=== PATIENT | female | born 1960 | race Caucasian/White ===

== ENCOUNTER → 2018-11-21 | Outpatient (CLI) | payer OTHER ==
--- NOTE | 2018-11-21 16:32 | REP ---
Urinary tract sonogram: History: Frequent UTIs. Comparison: No comparison study. Findings: Scanning at the level of the urinary bladder shows no abnormality. Pre void bladder volume is calculated at 105 ml. Complete emptying is seen postvoid. Renal cortical echogenicity pattern is normal bilaterally and contours are smooth. There is no evidence of hydronephrosis, cyst, mass, or calculus in either kidney. The right kidney measures 12.2 x 6.3 x 5.1 cm. Left renal dimensions are 12.0 x 5.2 x 6.3 cm. Impression: Normal urinary tract sonography. Electronically Signed by Graeme Lim MD 11/21/2018 04:24 P
== END ==
LOC: M RAD 11:18
PROVIDERS: ATTEND Nurse Practitioner Family
DX: N39.0 Urinary tract infection, site not specified (principal)

== ENCOUNTER → 2019-03-10 | Outpatient (CLI) | payer OTHER ==
[~2019-03-10] MED LIST: ACAR25TA2 PO; BASA100I SC; CALTTAB6 PO; JANU100T PO; LISI10TA4 PO; METF10004 PO; METH-855 PO; OXYB10TA2 PO; PRED5TA PO; SIMV20TA2 PO; STEG15TA PO; STIO1AER INH; TOPI50TA9 PO; VENTAER INH
[2019-03-10 13:41] LABS: HEMATOCRIT 42.6 % (36.0-47.0); HEMOGLOBIN 13.2 g/dl (12.0-15.5); MEAN CORPUSCULAR HEMOGLOBIN 28.3 pg (27.0-33.0); MEAN CORPUSCULAR VOLUME 91.2 fl (80.0-96.0); PLATELET COUNT, AUTOMATED 252 10^3/uL (150-450); RED BLOOD COUNT 4.67 10^6/uL (4.00-5.40)
[2019-03-10 14:02] LABS: ALBUMIN 3.4 GM/DL (3.2-5.2); ALT/SGPT 43 U/L (12-78); BILIRUBIN,TOTAL 0.4 MG/DL (0.2-1.0); BLOOD UREA NITROGEN 13 MG/DL (7-18); CALCIUM LEVEL 9.4 MG/DL (8.5-10.1); CARBON DIOXIDE LEVEL 24 MEQ/L (21-32); CHLORIDE LEVEL 105 MEQ/L (98-107); CREATININE FOR GFR 0.66 MG/DL (0.55-1.30); GLOMERULAR FILTRATION RATE > 60.0 (>51); GLUCOSE, FASTING 153 MG/DL (70-100); POTASSIUM SERUM 4.3 MEQ/L (3.5-5.1); SODIUM LEVEL 138 MEQ/L (136-145); TOTAL PROTEIN 6.4 GM/DL (6.4-8.2)
[2019-03-10 15:26] LABS: HEMOGLOBIN A1c 7.7 %
== END ==
LOC: M SMT 09:49
PROVIDERS: ATTEND Specialist
DX: Z28.21 Immunization not carried out because of patient refusal (principal)

== ENCOUNTER → 2019-03-10 | Outpatient (REF) | payer OTHER ==
[2019-03-10 13:33] LABS: BACTERIA, URINE AUTO 1+ (NEGATIVE); MUCUS, URINE SMALL (NEGATIVE); RBC, URINE AUTO 26 /HPF (0-3); SQUAMOUS EPITHELIAL CELL UR AU 7 /HPF (0-6); WBC, URINE AUTO 97 /HPF (0-3)
== END ==
LOC: M SMT 13:04
PROVIDERS: ATTEND Specialist
DX: N39.0 Urinary tract infection, site not specified (principal); Z28.21 Immunization not carried out because of patient refusal

== ENCOUNTER 2019-05-29 06:50 | Day surgery (SDC) | payer OTHER ==
[~2019-05-29] VITALS: Ht 162.6 cm; Wt 132.9 kg
[~2019-05-29 06:50] MED LIST changes: +LIDOCAINE 2% INJ 100 MG/5 ML SDV (FOR ANES.) As Ordered ONE; +LR 1,000 ML IV ONE; +MIDAZOLAM INJ 2 MG/2 ML VIAL (J2250) As Ordered ONE; -OXYB10TA2 PO; +OXYB10TA23 PO; -SIMV20TA2 PO; +SIMV20TA22 PO; +ceFAZolin SOD 2 GM in IV 1 EA IV ONE; +propofoL 200 MG/20 ML VIAL As Ordered ONE
[2019-05-29] MEDS ORDERED: propofoL 500 MG/50 ML VIAL As Ordered ONE (07:50)
[2019-05-29] MEDS ORDERED: propofoL 200 MG/20 ML VIAL As Ordered ONE ×2 (07:53→08:49)
[2019-05-29] MEDS ORDERED: AMOX500T2 PO (08:18)
[2019-05-29] MEDS ORDERED: LIDOCAINE 2% 5ML JELLY UROJET As Ordered ONE (08:19)
[2019-05-29] MEDS ORDERED: BOTULINUM INJ 100 UNITS (J0585) As Ordered ONE (08:19)
[2019-05-29] MEDS ORDERED: LIDOCAINE 1% MDV INJ 50 ML VIAL As Ordered ONE (08:19)
[2019-05-29] MEDS ORDERED: ESMOLOL INJ 100MG/10ML VIAL As Ordered ONE (09:03)
[2019-05-29] MEDS ORDERED: BELLADONNA 16.2mg/OPIUM 60mg 1 EA SUPP As Ordered ONE (09:08)
[2019-05-29] MEDS ORDERED: ONDANSETRON 4MG/2ML VIAL (J2405) As Ordered ONE (09:17)
[2019-05-29 10:13] VITALS: BP 167/70
--- NOTE | 2019-05-29 19:25 | RO ---
DATE OF PROCEDURE: 05/29/2019 PREOPERATIVE DIAGNOSIS: Significant urinary urgency, frequency, and urge incontinence despite medical management, and chronic cystitis. POSTOPERATIVE DIAGNOSIS: Significant urinary urgency, frequency, and urge incontinence despite medical management, and chronic cystitis. OPERATIVE PROCEDURE: Cystoscopy, hydrodistention, bladder biopsies, and intravesical Botox with 100 units SURGEON: Dr. Jyoti Vance ANESTHESIA: IV sedation. MEDICATIONS: Ancef 2 grams preoperatively. FINDINGS Significant bloody efflux with a total bladder capacity of only approximately 350 mL under anesthesia with some minimal glomerular lesions only, but findings of hemorrhagic cystitis. INDICATIONS FOR PROCEDURE The patient is a 58-year-old female with a longstanding history of recurrent urinary tract infections and urinary urgency, frequency every hour, and urge incontinence despite medical management with oxybutynin ER 10 mg twice daily and methenamine. On cystoscopy she had areas of chronic cystitis and it was decided to bring her to the operating room for further surgical management. Informed consent was obtained in both verbal and written form. DESCRIPTION OF PROCEDURE The patient was brought into the operating room. Sequential compression devices were in place and preoperative antibiotics were given. IV sedation was done and the patient was placed in the lithotomy position. Careful attention was paid that her pressure points were well padded and protected. She was then prepped and draped in the usual fashion. A #21-[place] cystoscope was then inserted. The urethra was noted to be open without any evidence of lesions or strictures. Upon entering the bladder, both ureteral orifices were seen. There was significant pseudomembranous trigonitis and findings of chronic cystitis with very friable bladder. There was no significant erythematous patches, lesions, stones or other significant abnormalities. At this point the bladder was distended using normal saline under gravity drainage. Her total bladder capacity was only about 350 mL and there was obvious urge incontinence around the cystoscope. At this point, the bladder biopsies were done and fulguration was done using sterile water. The water source was then placed back to normal saline and 100 units of Botox was placed throughout the bladder with 10 injections of 1 mL each. These areas were again fulgurated at the end. The patient tolerated the procedure well and was returned to the recovery room in stable condition after a red rubber catheter was placed with 10 mL of 1% lidocaine and lidocaine jelly.
== END 2019-05-29 10:15 | disposition home or self-care (01) ==
LOC: M SDC 06:50
PROVIDERS: ATTEND Specialist
DX: N30.10 Interstitial cystitis (chronic) without hematuria (principal); N39.41 Urge incontinence; I10 Essential (primary) hypertension; E78.5 Hyperlipidemia, unspecified; E10.9 Type 1 diabetes mellitus without complications; J44.9 Chronic obstructive pulmonary disease, unspecified; Z79.4 Long term (current) use of insulin; Z79.84 Long term (current) use of oral hypoglycemic drugs; Z87.891 Personal history of nicotine dependence; Z79.899 Other long term (current) drug therapy; Z88.1 Allergy status to other antibiotic agents
CPT/HCPCS: 52224; 52287; 88305; J0585; J0690; J2250; J2405

== ENCOUNTER → 2019-07-01 | Outpatient (REF) | payer OTHER ==
[~2019-07-01] MED LIST changes: +AMOX500T2 PO; -LIDOCAINE 2% INJ 100 MG/5 ML SDV (FOR ANES.) As Ordered ONE; -LR 1,000 ML IV ONE; -MIDAZOLAM INJ 2 MG/2 ML VIAL (J2250) As Ordered ONE; -ceFAZolin SOD 2 GM in IV 1 EA IV ONE; -propofoL 200 MG/20 ML VIAL As Ordered ONE
[2019-07-01 13:31] LABS: BACTERIA, URINE AUTO 1+ (NEGATIVE); RBC, URINE AUTO TNTC /HPF (0-3); SQUAMOUS EPITHELIAL CELL UR AU 7 /HPF (0-6); WBC, URINE AUTO TNTC /HPF (0-3)
== END ==
LOC: M SMT 12:54
PROVIDERS: ATTEND Specialist
DX: N39.0 Urinary tract infection, site not specified (principal)

== ENCOUNTER → 2019-09-28 | Outpatient (REF) | payer OTHER ==
[2019-09-28 19:21] LABS: APPEARANCE, URINE CLOUDY (CLEAR); BACTERIA, URINE AUTO 1+ (NEGATIVE); BILIRUBIN, URINE AUTO NEGATIVE (NEGATIVE); BLOOD, URINE BLOOD 2+ (NEGATIVE); COLOR, URINE YELLOW (YELLOW); GLUCOSE, URINE (UA) AUTO 3+ mg/dL (NEGATIVE); KETONE, URINE AUTO NEGATIVE (NEGATIVE); LEUKOCYTE ESTERASE, URINE AUTO 3+ (NEGATIVE); MUCUS, URINE SMALL (NEGATIVE); NITRITE, URINE AUTO POSITIVE (NEGATIVE); PROTEIN, URINE AUTO NEGATIVE (NEGATIVE); RBC, URINE AUTO 48 /HPF (0-3); SPECIFIC GRAVITY URINE AUTO 1.027 (1.002-1.035); SQUAMOUS EPITHELIAL CELL UR AU 2 /HPF (0-6); UROBILINOGEN, URINE AUTO 0.2 mg/dL (0.0-2.0); WBC, URINE AUTO TNTC /HPF (0-3)
== END ==
LOC: M SMT 16:30
PROVIDERS: ATTEND Nurse Practitioner Family
DX: N39.0 Urinary tract infection, site not specified (principal)

== ENCOUNTER → 2020-02-18 | Outpatient (REF) | payer OTHER ==
[2020-02-18 13:47] LABS: APPEARANCE, URINE CLOUDY (CLEAR); BACTERIA, URINE AUTO 1+ (NEGATIVE); BILIRUBIN, URINE AUTO NEGATIVE (NEGATIVE); BLOOD, URINE BLOOD 2+ (NEGATIVE); COLOR, URINE YELLOW (YELLOW); GLUCOSE, URINE (UA) AUTO 3+ mg/dL (NEGATIVE); KETONE, URINE AUTO TRACE mg/dL (NEGATIVE); LEUKOCYTE ESTERASE, URINE AUTO 3+ (NEGATIVE); NITRITE, URINE AUTO NEGATIVE (NEGATIVE); PROTEIN, URINE AUTO 1+ mg/dL (NEGATIVE); RBC, URINE AUTO 32 /HPF (0-3); SPECIFIC GRAVITY URINE AUTO 1.023 (1.002-1.035); SQUAMOUS EPITHELIAL CELL UR AU 1 /HPF (0-6); UROBILINOGEN, URINE AUTO 0.2 mg/dL (0.0-2.0); WBC, URINE AUTO TNTC /HPF (0-3)
[2020-02-18 13:48] LABS: BASO # 0.1 10^3/uL (0.0-0.2); BASO % 0.4 % (0.0-1.0); EOS # 0.1 10^3/uL (0.0-0.5); EOS % 1.1 % (0.0-3.0); HEMATOCRIT 45.2 % (36.0-47.0); HEMOGLOBIN 14.3 g/dl (12.0-15.5); LYMPH # 1.9 10^3/uL (1.5-5.0); LYMPH % 16.5 % (24.0-44.0); MEAN CORPUSCULAR HEMOGLOBIN 27.5 pg (27.0-33.0); MEAN CORPUSCULAR HGB CONC 31.6 g/dl (32.0-36.5); MEAN CORPUSCULAR VOLUME 86.9 fl (80.0-96.0); MONO # 0.9 10^3/uL (0.0-0.8); MONO % 7.8 % (0.0-5.0); NEUTROPHILS # 8.4 10^3/uL (1.5-8.5); NEUTROPHILS % 73.8 % (36.0-66.0); PLATELET COUNT, AUTOMATED 276 10^3/uL (150-450); WHITE BLOOD COUNT 11.4 10^3/uL (4.0-10.0)
[2020-02-18 14:14] LABS: ERYTHROCYTE SEDIMENTATION RATE 24 mm/hr (0-30)
[2020-02-18 14:22] LABS: ALBUMIN 3.4 GM/DL (3.2-5.2); ALT/SGPT 42 U/L (12-78); BILIRUBIN,TOTAL 0.5 MG/DL (0.2-1.0); BLOOD UREA NITROGEN 17 MG/DL (7-18); CALCIUM LEVEL 9.7 MG/DL (8.5-10.1); CARBON DIOXIDE LEVEL 26 MEQ/L (21-32); CHLORIDE LEVEL 101 MEQ/L (98-107); CREATININE FOR GFR 0.55 MG/DL (0.55-1.30); GLOMERULAR FILTRATION RATE > 60.0 (>51); GLUCOSE, FASTING 183 MG/DL (70-100); POTASSIUM SERUM 4.6 MEQ/L (3.5-5.1); SODIUM LEVEL 136 MEQ/L (136-145); TOTAL PROTEIN 6.8 GM/DL (6.4-8.2)
[2020-02-18 15:04] LABS: HEPATITIS C VIRUS ABY INDEX 0.1 INDEX (<0.8); HIV 1&2 SCREEN CENTAUR NEGATIVE (NEGATIVE)
== END ==
LOC: M SFHCPLAZ 12:04
PROVIDERS: ATTEND Internal Medicine Infectious Disease
DX: N39.0 Urinary tract infection, site not specified (principal); L81.8 Other specified disorders of pigmentation

== ENCOUNTER → 2020-08-15 | Outpatient (CLI) | payer OTHER ==
[~2020-08-15] MED LIST changes: +LIDOCAINE 1% MDV 20ML VIAL As Ordered ONE; +LISI10TA22 PO; -LISI10TA4 PO
[2020-08-15 08:44] LABS: PLATELET COUNT, AUTOMATED 330 10^3/uL (150-450)
[2020-08-15 08:55] LABS: INR 1.09; PROTHROMBIN TIME 14.3 SECONDS (12.5-14.3)
[2020-08-15 08:56] LABS: PARTIAL THROMBOPLASTIN TIME 28.2 SECONDS (24.2-38.5)
--- NOTE | 2020-08-15 11:01 | REP ---
INDICATION: BLEEDING AFTER KIDNEY BIOPSY. COMPARISON: CT-guided biopsy images today, prior CT 06/09/2020. TECHNIQUE: CT abdomen performed the axial plane with sagittal and coronal reconstruction images. FINDINGS: At the site of the of biopsy of the upper pole of the right kidney is small amount of post biopsy hemorrhage and air is seen along the posteromedial margin of the kidney. This is stable compared to the prior images just over 1 hour earlier. There is stable bilateral hydroureteronephrosis. The liver, spleen, adrenals and pancreas appear unchanged. IMPRESSION: Small amount of post biopsy hemorrhage along the upper pole of the right kidney remains stable compared to the immediate post biopsy images. <Electronically signed by Heron Warren > 08/15/20 [id number]
[2020-08-15 11:54] VITALS: BP 135/64
--- NOTE | 2020-08-15 19:07 | REP ---
INDICATION: RT KIDNEY MASS. COMPARISON: None. TECHNIQUE: The procedure was performed under the direct supervision of Dr. Warren. The patient has a history of a 2 x 2 cm lesion in the right kidney at the midpole seen on a previous CT scan from [facility] dated 06/09/2020. The risks and benefits of the procedure were explained to the patient and informed consent was obtained. The right midpole kidney lesion was localized using CT guidance. The skin was prepped and draped in a sterile fashion. 1% lidocaine was used as local anesthetic using CT guidance a 19/20 gauge coaxial needle biopsy system was inserted and advanced into the lesion. Five core biopsy samples were obtained and sent to the lab for analysis. Post biopsy scan shows a small hematoma. Images obtained 5 minutes later show no change in the size of the hematoma. A CT scan of the abdomen was performed 1 hour later and again show no change in the size of the small hematoma. The patient tolerated the procedure well and there were no immediate complications. After the appropriate amount to monitor convalescence the patient was discharged from the department. FINDINGS: None IMPRESSION: Ultrasound-guided right kidney biopsy. <Electronically signed by Kaz Fischer > 08/15/20 [id number] <Electronically signed by Heron Warren > 08/15/20 [id number]
== END ==
LOC: M IRPRO 08:10
PROVIDERS: ATTEND Urology
DX: C64.1 Malignant neoplasm of right kidney, except renal pelvis (principal); N13.30 Unspecified hydronephrosis; N13.4 Hydroureter; E11.59 Type 2 diabetes mellitus with other circulatory complications; I73.9 Peripheral vascular disease, unspecified; J44.9 Chronic obstructive pulmonary disease, unspecified

== ENCOUNTER → 2020-08-30 | Outpatient (POV) | payer OTHER ==
[~2020-08-30] VITALS: Ht 162.6 cm; Wt 115.5 kg
[~2020-08-30] MED LIST changes: -LIDOCAINE 1% MDV 20ML VIAL As Ordered ONE
[2020-08-30 13:04] VITALS: BP 168/76
--- NOTE | 2020-09-02 09:02 | IRCOV ---
[facility] IR Consult Office Visit IR Consult Office Visit DATE: Aug 30, 2020 REASON FOR CONSULTATION/CHIEF COMPLAINT: Right renal cancer. HISTORY OF PRESENT ILLNESS: 59-year-old female with diabetes, hypertension, hyperlipidemia and COPD, on home oxygen 2.5 L at night. Patient complains of years of frequency, dysuria or urinary continence and UTIs. She reports prior hematuria. She states during the workup for one of these episodes, she had imaging done which demonstrated a right renal tumor. She denies pain, fevers, chills or change in weight. She denies exposure to any toxins. She denies prior history of cancers. She is a former smoker; she quit 7 years ago. She denies any prior kidney surgery other than this mass which was biopsied on 08/15/2020 and is biopsy proven clear cell carcinoma. She is referred from urology for possible tumor ablation. ALLERGIES: Please see below. HOME MEDICATIONS: Please see below. PAST MEDICAL HISTORY: Urinary incontinence Arthritis Peripheral vascular disease COPD Type 2 diabetes Uterovaginal prolapse Gross hematuria Lateral cystocele Recurrent UTIs/cystitis PAST SURGICAL HISTORY: Open reduction and internal fixation of left lower extremity fractures Cystoscopy 02/04/2019 FAMILY HISTORY: Noncontributory. SOCIAL HISTORY: Former smoker. Quit 7 years. Started smoking at age 25; 3 packs per day. Denies alcohol or drugs. REVIEW OF SYSTEMS: Otherwise negative. PHYSICAL EXAMINATION: VITAL SIGNS: Please see below. GENERAL APPEARANCE: Appears well. Comfortable at rest. HEENT: No scleral icterus. RESPIRATORY: Normal breathing at rest. CARDIOVASCULAR: Normal rate. ABDOMEN: Soft nontender. EXTREMITIES: Minimal edema. NEUROLOGICAL: Alert and oriented. PSYCHIATRIC: Appropriate to circumstance. LABORATORY DATA: None recent. Imaging: I personally reviewed the CT abdomen without and with contrast pe rformed June 09, 2020. There is a an enhancing partially exophytic right renal tumor measuring 1.9 x 2.3 axial x 2.3 cm craniocaudal. There is also an area of abnormal enhancement in the left kidney which has a masklike appearance (image 43 series 3). ASSESSMENT/PLAN: 59-year-old female with biopsy-proven, partially exophytic, right renal tumor but also an area of suspicion in the left kidney. The right renal tumor is amenable to cryoablation. We discussed the risks and benefits of the procedure and patient would like to proceed. We'll schedule the patient for right renal tumor cryoablation. Patient will require ongoing observation and follow-up of this left renal lesion and/or biopsy if appropriate. I spent 45 minutes reviewing patient's records, imaging and in consultation with the patient. Thank you for this referral. Cc Dr. Sena Allergies Coded Allergies: ciprofloxacin (Verified Allergy, Unknown, hives, 03/12/19) Uncoded Allergies: FLU SHOT (Allergy, Intermediate, HIVES, 08/11/20) pt. states arm swelling, hives, itching Home Medications Scheduled Acarbose (Acarbose), 1 TAB PO TID, (Reported) Curly/D3/Mag11/Zinc/Caregivers Non Medical/Conner/Bor (Caltrate 600+D Plus Tablet), 2 TAB PO BID, (Reported) Ertugliflozin Pidolate (Steglatro), 1 TAB PO DAILY, (Reported) Lisinopril (Lisinopril), 1 TAB PO DAILY, (Reported) Methenamine Hippurate (Methenamine Hippurate), 1 TAB PO BID, (Reported) Simvastatin (Simvastatin), 20 MG PO DAILY, (Reported) Tiotropium Br/Olodaterol HCl (Stiolto Respimat Inhal [place]), 2 PUFFS INH DAILY, (Reported) Topiramate (Topiramate), 50 MG PO BID, (Reported) Scheduled PRN Albuterol Sulfate (Ventolin Hfa), 2 PUFF INH Q4-6HP PRN for wheezing, (Reported) Insulin Glargine,Hum.rec.anlog (Basaglar Kwikpen U-100), 40 UNITS SC QHSP PRN for elevated sugar above 140, (Reported) VS, I&O, 24H, Fishbone Vital Signs/I&O Vital Signs Date Time Temp Pulse Resp B/P (MAP) Pulse Ox O2 Delivery O2 Flow Rate FiO2 08/30/20 13:04 97.5 82 24 168/76 (106) 94 Room Air SONIA ODOM MD Sep 02, 2020 09:02
== END ==
LOC: M IRPOV 12:32
PROVIDERS: ATTEND Radiology Diagnostic Radiology
DX: C64.1 Malignant neoplasm of right kidney, except renal pelvis (principal); R93.422 Abnormal radiologic findings on diagnostic imaging of left kidney; E11.9 Type 2 diabetes mellitus without complications; E78.5 Hyperlipidemia, unspecified; I10 Essential (primary) hypertension; I73.9 Peripheral vascular disease, unspecified; J44.9 Chronic obstructive pulmonary disease, unspecified; M12.9 Arthropathy, unspecified; Z87.440 Personal history of urinary (tract) infections

== ENCOUNTER → 2020-09-08 | Outpatient (CLI) | payer OTHER ==
[~2020-09-08] MED LIST changes: +CALC500T31 PO; +D-101000 PO; +DARI7.5T11 PO; +ISOVUE-370 76% 100ML VIAL As Ordered ONE; +LIDOCAINE 1% MDV 20ML VIAL As Ordered ONE; +MIDAZOLAM INJ 2MG/2ML VIAL (J2250 PER 1MG) As Ordered ONE; +OSTETAB2 PO; +PENT10CA PO; +PROMETHAZINE INJ 25 MG/ML VIAL (J2550) As Ordered ONE; +diphenhydrAMINE 50MG/ML VIAL (J1200) As Ordered ONE; +fentaNYL 100 MCG/2 ML INJECTION (J3010) As Ordered ONE
--- NOTE | 2020-09-08 08:25 | IRHP ---
[facility] IR Pre-Procedure H & P General Date of Service: Sep 08, 2020 Procedure: Same Day Surgery Interval History and Physical I have seen the patient and reviewed last H & P performed within 30 days. There is no significant interval change. History of Present Illness Chief Complaint The patient is a 59-year-old female admitted with a reason for visit of Renal Cancer. PRE-PROCEDURE DIAGNOSIS: Right renal cancer HEART: Normal rate. LUNGS: Normal breathing at rest. ASA Classification ASA Classification: II-Mild systemic disease, III-Severe systemic dis. Mallampati Score: II NPO: Yes Problems with prior sedation: No Obstructive Sleep Apnea: No Plan moderate sedation Allergies Coded Allergies: ciprofloxacin (Verified Allergy, Unknown, hives, 03/12/19) Uncoded Allergies: FLU SHOT (Allergy, Intermediate, HIVES, 08/11/20) pt. states arm swelling, hives, itching Home Medications Scheduled Acarbose (Acarbose), 50 MG PO TID, (Reported) Curly/D3/Mag11/Zinc/Heavy Equipment Operating Engineer/Conner/Bor (Caltrate 600+D Plus Tablet), 2 TAB PO BID, (Reported) Calcium Carbonate (Oyster Shell Calcium), 1 TAB PO BID, (Reported) Cholecalciferol (Vitamin D3) (Vitamin D3), 1 TAB PO DAILY, (Reported) Darifenacin Hydrobromide (Darifenacin ER), 15 MG PO DAILY, (Reported) Ertugliflozin Pidolate (Steglatro), 1 TAB PO DAILY, (Reported) Glucosam/Shyam-Msm1/C/Conner/Bosw (Osteo Bi-Flex Caplet), 1 TAB PO BID, (Reported) Lisinopril (Lisinopril), 20 MG PO DAILY, (Reported) Methenamine Hippurate (Methenamine Hippurate), 1 TAB PO BID, (Reported) Pentosan Polysulfate Sodium (Elmiron), 100 MG PO TID, (Reported) Simvastatin (Simvastatin), 20 MG PO DAILY, (Reported) Tiotropium Br/Olodaterol HCl (Stiolto Respimat Inhal [place]), 2 PUFFS INH DAILY, (Reported) Topiramate (Topiramate), 50 MG PO BID, (Reported) Scheduled PRN Albuterol Sulfate (Ventolin Hfa), 2 PUFF INH Q4-6HP PRN for wheezing, (Reported) Insulin Glargine,Hum.rec.anlog (Kallieagltomi Montiel U-100), 68 UNITS SC QHSP PRN for elevated sugar above 140, (Reported) VS, I&O, 24H, Fishbone Vital Signs/I&O Vital Signs Date Time Temp Pulse Resp B/P (MAP) Pulse Ox O2 Delivery O2 Flow Rate FiO2 09/08/20 08:08 98.6 80 20 97 Room Air Laboratory Data 24H LABS Laboratory Tests 2 09/08/20 08:14: Bedside Glucose (Misc Panel) 188H SONIA ODOM MD Sep 08, 2020 08:24
--- NOTE | 2020-09-08 11:59 | IRPON ---
IR Postoperative Note Date Of Procedure: Sep 08, 2020 Time Of Procedure: 11:49 IR Postoperative Note IR CT Guided Renal Cryoablation. IR Moderate sedation. Clinical Information:Right renal cell cancer. Physician: Dr. Queen. Procedure: The patient was advised of the benefits, risks, and alternatives of the procedure and informed consent was obtained. A time out was performed with verification of the patient's name, MRN, site of procedure, and type of procedure to be performed. The patient was positioned in the prone position on the angiographic table. The site was prepped and draped in the usual sterile fashion. Moderate sedation was performed by the physician including the presence of an independent trained RN who assisted in monitoring the patient's level of consciousness and physiological status. Following the administration of fentanyl and Versed, the physician spent 120 minutes of continuous [id number] time with the patient. Preliminary CT without and with contrast demonstrates an approximately 2.1 x 3.2 cm partially exophytic mass arising off the right kidney. The skin and expected tract were anesthetized with lidocaine. A small skin incision was then made. Using CT guidance, a 14-gauge cryoablation probe was advanced into the target lesion. Intermittent CT guidance was used to advance the needle and position it to cover the lateral aspect of the tumor.Then a second 14-gauge cryoablation probe was advanced under intermittent CT guidance into the tumor and positioned to cover the medial margin. A 12 minute freeze cycle was performed. Intraprocedural CT demonstrates coverage of the target lesion with an ice-ball but sparing of the medial margin up to the renal collecting system. This is also thought to be involved with tumor. A 6 minute thaw period was then observed. A second 10 minute freeze and 6 minute thaw cycle was then performed. Intermittent CT during the freeze cycle demonstrates ice ball in the target lesion. One of the 2 cryoablation probes was removed after performing tract ablation. The second cryoablation probe was then readjusted under intermittent CT guidance, to give additional medial coverage up to the renal collecting system. A third freeze and thaw cycle was then observed, including 10 minute freeze , 6 minute thaw, 8 minute freeze and [address] scan was performed midcycle which demonstrates adequate coverage of the tumor. The last cryoablation probe was then removed after performing tract ablation. The puncture sites were cleansed and a sterile dressing was applied. The patient tolerated the procedure well and was returned to the PRU in stable condition. EBL: < 5 mL. Complications:None. Conclusion: 1. Successful cryoablation of a right renal cell carcinoma. 2. Patient to follow-up in our clinic in 2 weeks. Cc SONIA [address] MD Sep 08, 2020 11:59
[2020-09-08 13:00] VITALS: BP 107/53
== END ==
LOC: M IRPRO 07:52
PROVIDERS: ATTEND Radiology Diagnostic Radiology
DX: C64.1 Malignant neoplasm of right kidney, except renal pelvis (principal); Z79.4 Long term (current) use of insulin; Z79.899 Other long term (current) drug therapy; Z88.1 Allergy status to other antibiotic agents; Z88.7 Allergy status to serum and vaccine
CPT/HCPCS: 50593; 76940; 99152; 99153; C2618; J1200; J2250; J3010; Q9967

== ENCOUNTER → 2020-09-27 | Outpatient (POV) | payer OTHER ==
[~2020-09-27] MED LIST changes: -ISOVUE-370 76% 100ML VIAL As Ordered ONE; -LIDOCAINE 1% MDV 20ML VIAL As Ordered ONE; -MIDAZOLAM INJ 2MG/2ML VIAL (J2250 PER 1MG) As Ordered ONE; -PROMETHAZINE INJ 25 MG/ML VIAL (J2550) As Ordered ONE; -diphenhydrAMINE 50MG/ML VIAL (J1200) As Ordered ONE; -fentaNYL 100 MCG/2 ML INJECTION (J3010) As Ordered ONE
[2020-09-27 09:28] VITALS: BP 133/65
--- NOTE | 2020-09-28 10:36 | IRPN ---
[facility] IR Progress Note IR Progress Note DATE: September 27, 2020 FOLLOW-UP: Status post right renal cell carcinoma cryoablation on 09/08/2020. Patient reports she is having some right flank and right lower quadrant pain, which has been constant since the procedure and is not getting worse or any better. She cannot identify any aggravating or relieving factors. She reports the nature of the pain is achy. It is not colicky in nature. Doesn't come and go and it is not sharp or shooting, band like pain, to indicate a neurologic etiology. She states she is urinating normally. Denies any hematuria. Patient denies any fevers, chills or dizziness. ON EXAMINATION: Patient appears comfortable at rest. She is able to move around on the examination table without discomfort. Abdomen appears nondistended. There is no rebound or guarding. Mild tenderness in the right flank region. The cryoablation access sites are completely healed up with no redness, discharge or hematoma. There is no discoloration of the skin on the flank. Mild tenderness in the right lower quadrant without rebound or guarding. Imaging: I ordered and personally reviewed a CT abdomen and pelvis with IV contrast, performed today and compared it to the CT abdomen with IV contrast, performed 06/09/2020. Right renal cryoablation changes without any residual enhancing tumor in the area. No retroperitoneal hematoma. Otherwise unremarkable enhancement of bilateral kidneys with no perinephric stranding. No abdominal or pelvic collections. No urinomas. There is unchanged bilateral hydroureter all the way to the bladder, of unknown etiology. IMPRESSION: 59-year-old female now status post right renal cell carcinoma cryoablation with appropriate ablation defect without evidence of retroperitoneal hematoma, urinoma or abscess. The tumor appears well treated without residual or recurrent enhancing soft tissue. There is bilateral hydroureter all the way to the bladder of unknown etiology which is unchanged from prior. We did order a CBC and BMP on the patient, however the patient left prior to receiving these labs. Patient is advised to follow-up with her PCP regarding these labs. Patient to follow-up with urology regarding bilateral hydroureter of unknown etiology. Patient will be followed up in IR with repeat imaging in 9 months for ongoing RCC surveillance. Thank you for this referral. Cc Dr. Sena CC Dr. Deandre Aguirre. Allergies Coded Allergies: ciprofloxacin (Verified Allergy, Unknown, hives, 03/12/19) Uncoded Allergies: FLU SHOT (Allergy, Intermediate, HIVES, 08/11/20) pt. states arm swelling, hives, itching VS,Fishbone, I+O VS, Fishbone, I+O Vital Signs Date Time Temp Pulse Resp B/P (MAP) Pulse Ox O2 Delivery O2 Flow Rate FiO2 09/27/20 09:28 97.7 94 20 133/65 (87) 99 Room Air SONIA ODOM MD September 28, 2020 10:36
== END ==
LOC: M IRPOV 09:00
PROVIDERS: ATTEND Radiology Diagnostic Radiology
DX: Z48.816 Encounter for surgical aftercare following surgery on the genitourinary system (principal); C64.1 Malignant neoplasm of right kidney, except renal pelvis; N13.4 Hydroureter; Z88.1 Allergy status to other antibiotic agents; Z88.7 Allergy status to serum and vaccine

== ENCOUNTER → 2020-09-27 | Outpatient (CLI) | payer OTHER ==
[~2020-09-27] MED LIST changes: +ISOVUE-370 76% 100ML VIAL As Ordered ONE
--- NOTE | 2020-09-27 12:32 | REP ---
INDICATION: RLQ PAIN. COMPARISON: Prior CT examinations of the abdomen only 08/15/2020 a noncontrast enhanced examination and 06/09/2020 a contrast-enhanced examination. TECHNIQUE: Standard helical technique after the intravenous administration of 100 cc Isovue 370 FINDINGS: The lung bases are clear. The solid intra-organs and gallbladder are unchanged. The pancreas and adrenal glands are unchanged. The abdominal aorta and para-aortic regions are unchanged. There is no free intraperitoneal fluid or air. There is no significant change in appearance of the bowel loops or the mesenteries. In the medial aspect of the interpolar region of the right kidney at the site of a previous biopsy and previous enhancing renal lesion there is an irregular 3.5 x 2.5 cm sized area of low density likely the sequelae of the biopsy. There is no abnormal left renal enhancement. There is bilateral hydronephrosis and hydroureter. No abnormal renal, ureteral, or urinary bladder calculi are identified. The degree of hydronephrosis is essentially unchanged to possibly slightly increased compared to the prior CT examination of 06/09/2020. Small and borderline sized retroperitoneal lymph nodes are noted. These are essentially unchanged compared to the 06/09/2020 CT. There is no change in the imaged osseous structures. IMPRESSION: 1. Finding involving the right kidney, as described above, likely the sequelae of recent biopsy and resolving hemorrhage. Follow-up is recommended. 2. Bilateral hydronephrosis and hydroureter as described above. Etiology uncertain. Follow-up is recommended. 3. Other findings as described above. <Electronically signed by Deandre Aguirre > 09/27/20 [id number]
== END ==
LOC: M RAD 10:32
PROVIDERS: ATTEND Radiology Diagnostic Radiology
DX: R93.5 Abnormal findings on diagnostic imaging of other abdominal regions, including retroperitoneum (principal); N13.30 Unspecified hydronephrosis; N13.4 Hydroureter
CPT/HCPCS: 74177; Q9967

== ENCOUNTER → 2021-06-06 | Outpatient (POV) | payer OTHER ==
[~2021-06-06] VITALS: Ht 162.6 cm; Wt 114.5 kg
[~2021-06-06] MED LIST changes: -ISOVUE-370 76% 100ML VIAL As Ordered ONE
[2021-06-06 12:55] VITALS: BP 135/65
== END ==
LOC: M IRPOV 12:16
PROVIDERS: ATTEND Radiology Diagnostic Radiology
DX: C64.1 Malignant neoplasm of right kidney, except renal pelvis (principal); Z88.7 Allergy status to serum and vaccine

== ENCOUNTER → 2021-06-21 | Outpatient (CLI) | payer OTHER ==
[~2021-06-21] MED LIST changes: +ISOVUE-370 76% 100ML VIAL ONE
== END ==
LOC: M PLAIMG 12:26
PROVIDERS: ATTEND Radiology Diagnostic Radiology
DX: C64.9 Malignant neoplasm of unspecified kidney, except renal pelvis (principal)
CPT/HCPCS: 74170; Q9967